=== PATIENT | female | born 1950 | race Caucasian/White ===

== ENCOUNTER 2022-09-16 08:43 | Day surgery (SDC) | payer MEDICARE, BC ==
[~2022-09-16 08:43] MED LIST: Propofol 200 MG/20 ML SDV ONE
[2022-09-16] MEDS ORDERED: Sodium Chloride 0.9% 10 ML Syringe FLUSH PRN (08:45)
[2022-09-16] MEDS ORDERED: Lactated Ringers 1,000 ML IV SCH (08:45)
[2022-09-16] MEDS ORDERED: Lidocaine 2% 5 ML SDV ONE (10:10)
[2022-09-16 10:48] VITALS: BP 116/68; PULSE 57
== END 2022-09-16 11:33 | disposition home or self-care (01) ==
LOC: LL.SDS 08:43
PROVIDERS: ATTEND Surgery
DX: K21.00 Gastro-esophageal reflux disease with esophagitis, without bleeding (principal); K22.70 Barrett's esophagus without dysplasia; E04.1 Nontoxic single thyroid nodule; I25.10 Atherosclerotic heart disease of native coronary artery without angina pectoris; I25.118 Atherosclerotic heart disease of native coronary artery with other forms of angina pectoris; E78.2 Mixed hyperlipidemia; D64.9 Anemia, unspecified; M31.6 Other giant cell arteritis; F41.1 Generalized anxiety disorder; M35.04 Sjogren syndrome with tubulo-interstitial nephropathy; G89.29 Other chronic pain; G30.1 Alzheimer's disease with late onset; F02.80 Dementia in other diseases classified elsewhere, unspecified severity, without behavioral disturbance, psychotic disturbance, mood disturbance, and anxiety; G47.01 Insomnia due to medical condition; N30.90 Cystitis, unspecified without hematuria; Z79.899 Other long term (current) drug therapy; Z88.8 Allergy status to other drugs, medicaments and biological substances; Z88.6 Allergy status to analgesic agent
CPT/HCPCS: 00731; J2704; J3490; J7120